=== PATIENT | female | born 1945 | race Caucasian/White ===

== ENCOUNTER 2020-08-08 09:56 | Day surgery (SDC) | payer MEDICARE, OTHER ==
[~2020-08-08] VITALS: Ht 149.9 cm; Wt 75.0 kg
[2020-08-08] MEDS ORDERED: LISINOPRIL5 MG PO (10:15)
[2020-08-08] MEDS ORDERED: FLONASE SENSIM5.9 ML (10:16)
[2020-08-08] MEDS ORDERED: OMEPRAZOLE20 MG PO (10:16)
[2020-08-08] MEDS ORDERED: LOVASTATIN10 MG PO (10:16)
--- NOTE | 2020-08-08 13:16 | NUR ---
08/08/20 1316 Akilah Crawford 1312- PT ARRIVES TO PACU AWAKE AND TALKING WITH STAFF. PT REPORTS SHE FEELS BLOATED, DENIES PAIN OR NAUSEA. PT ENCOURAGED TO PASS FLATUS TO HELP WITH THE BLOATING. PT STATES UNDERSTANDING. RESP EVEN AND UNLABORED. OXYGEN SAT MID TO HIGH 90'S ON 3L O2 VIA NC. 1314- PT PASSING FLATUS. PT REPORTS THIS IS HELPING WITH HER BLOATING.
--- NOTE | 2020-08-09 13:30 | OR ---
[facility] [address], [place] [address] Signed DATE OF OPERATION: 08/08/2020 SURGEON: Jonathan Javed MD PREOPERATIVE DIAGNOSIS: Persistent diarrhea. POSTOPERATIVE DIAGNOSES: 1. Normal-appearing colon and ilium (no evidence of colitis). 2. Small polyp near orifice of appendix. PROCEDURE: Total colonoscopy to cecum with cold morcellation excision of polyp of cecum and biopsies of cecum, terminal ileum and rectum. ANESTHESIA: Intravenous sedation, fentanyl 150 mcg and Versed 6 mg. INDICATION: A 74-year-old white woman is a patient of SHALONDA Merino. She was last seen by me in January with complaints of diarrhea, but no associated bleeding. Notably, the patient underwent cholecystectomy a number of years ago. Her symptoms have persisted through the COVID pandemic and she is now to undergo colonoscopy to better characterize the problem. She last had colonoscopy in 2004. She understands the risks of bleeding, infection, and perforation related to colonoscopy and wished to proceed. Additionally noted is that her diarrhea has been going on at least since her stomach operation in 2014, which included repair of hiatal hernia at [facility]. She does continue to take omeprazole as recommended by those at [facility]. FINDINGS: The prep was good. Complete colonoscopy was undertaken of the cecum, intubation of the ileum was accomplished as well. There was no sign of inflammatory lesions throughout the colon, rectum or ileum. There was a small adenomatous-appearing polyp near the appendiceal orifice, which was small and unlikely to cause any symptoms. DESCRIPTION OF PROCEDURE: The patient was brought to the endoscopy suite and placed in lateral decubitus position, given intravenous sedation to the point of slurred speech and nystagmus. Full cardiopulmonary monitoring was maintained. The Olympus video colonoscope was passed in Electronically Signed By: JONATHAN JAVED MD 08/09/20 1330 PATIENT NAME: TONIA HAND OPERATIVE REPORT DATE OF : 45 REPORT #: [id number] PHYSICIAN: JONATHAN JAVED MD PCP: MEDARDO JAY REPORT IS CONFIDENTIAL AND NOT TO BE RELEASED WITHOUT AUTHORIZATION [facility] [address] [place], [place] [address] Signed the rectum and manipulated throughout the colon ultimately intubating the cecum itself. The ileocecal valve and appendiceal orifice were normal. Near the appendiceal orifice, there was an area suggestive of polyp. This was excised with cold morcellation technique. Without too much trouble, the ileum was intubated, the ileum appeared normal, biopsies were obtained nevertheless. The scope was withdrawn from that point and examination throughout showed no sign of abnormality, specifically no diverticular formation, colitis or cancer. Retroflex view was normal as well. The scope was removed and the patient was taken to the recovery room in good condition. CONCLUDING DIAGNOSIS: Uncertain etiology of her diarrhea. The possibility of her PPI medication is considered. Since she has had cholecystectomy in the past, consideration might be made for Questran to be empirically given for symptom control. We will prescribe 4 g p.o. q.i.d. tapering to the lowest effective dose we will check pathology report regarding the polyp. If adenomatous polyp is confirmed, then repeat colonoscopy in 5 years would be appropriate, sooner if problems. Jonathan Javed MD JM/MODL /[id number] cc: SHALONDA Merino Copies: MEDARDO JAY ~ Electronically Signed By: JONATHAN JAVED MD 08/09/20 1330 PATIENT NAME: TONIA HAND OPERATIVE REPORT DATE OF : 45 REPORT #: [id number] PHYSICIAN: JONATHAN JAVED MD PCP: MEDARDO JAY REPORT IS CONFIDENTIAL AND NOT TO BE RELEASED WITHOUT AUTHORIZATION
--- NOTE | 2020-08-12 17:35 | PATH ---
[facility] [address] [place], [place] [address] Signed SPECIMEN(S): A CECAL POLYP, APPENDICEAL ORIFICE SPECIMEN(S): B CECUM SPECIMEN(S): C ILEUM SPECIMEN(S): D RECTUM SPECIMEN SOURCE: A. CECAL POLYP, APPENDICEAL ORIFICE B. CECUM C. ILEUM D. RECTUM CLINICAL HISTORY: Colonoscopy. Diarrhea. Post: Colon polyp near appendiceal orifice. MICROSCOPIC DESCRIPTION: Histologic sections of all submitted blocks are examined by light microscopy. These findings, together with the gross examination, support the pathologic diagnosis. FINAL PATHOLOGIC DIAGNOSIS: A. Colon, cecum/appendiceal orifice, polyp, polypectomy: - Tubular adenoma. - Negative for high-grade dysplasia or malignancy. B. Colon, cecum, biopsy: - Colonic mucosa with no histopathologic abnormality. - Negative for active, chronic, or microscopic colitis - Negative for dysplasia or malignancy. C. Ileum, biopsy: - Ileal mucosa with no histopathologic abnormality. - Negative for active inflammation or granulomata. - Negative for dysplasia or malignancy. D. Rectum, biopsy: - Rectal mucosa with no histopathologic abnormality. - Negative for active or chronic proctitis. - Negative for dysplasia or malignancy. NAL:cml:C2NR GROSS DESCRIPTION: Four specimens are received in four containers, labeled "NM." A. The specimen, labeled "NM, 1," and designated on the requisition "cecal polyp, appendiceal orifice," is received in formalin and consists of five rutledge soft tissue fragments that measure 0.2-0.3 cm PATIENT NAME: TONIA HAND PATHOLOGY DATE OF : 45 REPORT #: [id number] PHYSICIAN: MARTHA HOLLEY PCP: MEDARDO JAY REPORT IS CONFIDENTIAL AND NOT TO BE RELEASED WITHOUT AUTHORIZATION [facility] [address] [place], [place] [address] Signed in greatest dimension. The specimen is entirely submitted in cassette (A1). Smaller fragments are minute and may not survive processing. B. The specimen, labeled "NM, 2," and designated on the requisition "cecum," is received in formalin and consists of two rutledge soft tissue fragments that measure 0.3 cm in greatest dimension. The specimen is entirely submitted in cassette (B1). C. The specimen, labeled "NM, 3," and designated on the requisition "ileum," is received in formalin and consists of one rutledge soft tissue fragment that measures 0.3 cm in greatest dimension. The specimen is entirely submitted in cassette (C1). D. The specimen, labeled "NM, 4," and designated on the requisition "rectum," is received in formalin and consists of two rutledge soft tissue fragments that measure 0.2-0.3 cm in greatest dimension. The specimen is entirely submitted in cassette (D1). AT (under the direct supervision of a pathologist) The Gross Description was prepared using a voice recognition system. The report was reviewed for accuracy; however, sound-alike word errors, addition and/or deletions may occur. If there is any question about this report, please contact Client Services. PERFORMING LABORATORY: The technical component was performed by [facility], [address] [place] [id number] (Car Loader: Socorro Angel MD; CLIA# [id number]). [facility], [address] [place] [address] (CLIA# [id number]). Diagnostician: Chika Giordano MD Pathologist Electronically Signed 08/12/2020 Copies: ~ PATIENT NAME: TONIA HAND PATHOLOGY DATE OF : 45 REPORT #: [id number] PHYSICIAN: MARTHA HOLLEY PCP: MEDARDO JAY REPORT IS CONFIDENTIAL AND NOT TO BE RELEASED WITHOUT AUTHORIZATION
== END 2020-08-08 13:55 | disposition home or self-care (01) ==
LOC: OPS 09:56 → DS 10:00 → OPS 12:00 → DS 12:00 → OPS 13:55
PROVIDERS: ATTEND Surgery
PROC: 0DBP8ZX Excision of Rectum, Via Natural or Artificial Opening Endoscopic, Diagnostic (ICD-10-PCS; 2020-08-08)
PROC: 0DBB8ZX Excision of Ileum, Via Natural or Artificial Opening Endoscopic, Diagnostic (ICD-10-PCS; 2020-08-08)
PROC: 0DBH8ZX Excision of Cecum, Via Natural or Artificial Opening Endoscopic, Diagnostic (ICD-10-PCS; principal; 2020-08-08 12:00)
DX: D12.0 Benign neoplasm of cecum (principal); I10 Essential (primary) hypertension; D64.9 Anemia, unspecified; Z88.2 Allergy status to sulfonamides; Z79.899 Other long term (current) drug therapy; Z79.52 Long term (current) use of systemic steroids; Z90.49 Acquired absence of other specified parts of digestive tract; Z87.891 Personal history of nicotine dependence; Z96.659 Presence of unspecified artificial knee joint
CPT/HCPCS: 88305; 99153; G0500; J0690; J2250; J3010; J7121